=== PATIENT | male | born 1980 | race Two or more races ===

== ENCOUNTER 2017-06-08 23:45 | Emergency (ER) | payer OTHER ==
--- NOTE | 2017-06-09 00:53 | NUR ---
PT NOSE IS NOT BLEEDING AT THIS TIME PT DOES NOT WANT TO HAVE A MEDICAL EVAL.
== END 2017-06-09 00:55 | disposition left against medical advice (07) ==
LOC: ER 23:47
DX: Z53.21 Procedure and treatment not carried out due to patient leaving prior to being seen by health care provider (principal)